=== PATIENT | male | born 1935 | race Caucasian/White ===

== ENCOUNTER 2016-10-28 00:59 | Inpatient (IN) | payer MEDICARE ==
[2016-10-28] VITALS (10 sets, daily range): BP systolic 156–172; BP diastolic 67–96
[~2016-10-28] VITALS: Ht 154.9 cm; Wt 62.6 kg
[~2016-10-28 00:59] MED LIST: ALBU18HF INH; ASPI-621 PO; ATOR40TA78 PO; CARV6.252 PO; CLON0.1T PO; FURO40TA6 PO; HYDR25TA6 PO; INSU100I29 SC; INSU100V10 SC; LISI-170 PO; LOSA50TA6 PO; METF500T9 PO; METO-93 PO
[2016-10-28] MEDS ORDERED: hydrALAzine 20 MG/ML, 1ML ONE (01:59)
[2016-10-28] MEDS ORDERED: hydrALAzine 20 MG/ML, 1ML IV ONE (02:00)
[2016-10-28 02:25] LABS: ASPARTATE AMINO TRANSFERASE 18 U/L (15-37); BLOOD UREA NITROGEN 17 mg/dL (7-18)
[2016-10-28 02:34] LABS: IS PT STATUS REG ER OR PRE ER? YES
[2016-10-28] MEDS ORDERED: NS + 20MEQ KCL 1,000 ML IV SCH (04:39)
[2016-10-28] MEDS ORDERED: HYDROcodone/APAP 5/325 TABLET PO PRN (05:00)
[2016-10-28] MEDS ORDERED: hydrALAzine 20 MG/ML, 1ML IV PRN ×2 (05:00→17:00)
[2016-10-28] MEDS ORDERED: ACETAMINOPHEN 325 MG TABLET PO PRN (05:00)
[2016-10-28] MEDS ORDERED: ONDANSETRON 2MG/ML, 2ML IVPush PRN (05:00)
[2016-10-28] MEDS ORDERED: POLYETHYLENE GLYCOL 17 GM PACKET PO PRN (05:00)
[2016-10-28] MEDS ORDERED: DOCUSATE 100 MG CAPSULE PO PRN (05:00)
[2016-10-28] MEDS ORDERED: LABETALOL 5MG/ML, 20ML IVPush PRN (05:00)
[2016-10-28] MEDS: ENOXAPARIN 40 MG/0.4 ML SQ SCH (06:08)
[2016-10-28] MEDS: INSULIN ASPART 100 UNITS/ML, PEN SQ-INSULIN SCH ×4 (08:38→21:18)
[2016-10-28] MEDS: FUROSEMIDE 40 MG TABLET PO SCH (08:40)
[2016-10-28] MEDS: SENNA/DOCUSATE TABLET PO SCH (08:40)
[2016-10-28] MEDS: METOPROLOL SUCCINATE 50 MG TAB.ER.24H PO SCH (08:40)
[2016-10-28] MEDS: metFORMIN XR 500 MG TAB.ER.24H PO SCH ×2 (08:41→21:07)
[2016-10-28] MEDS: ASPIRIN 81 MG TABLET EC PO SCH (08:41)
[2016-10-28] MEDS: HYDROCHLOROTHIAZIDE 25 MG TABLET PO SCH (08:41)
[2016-10-28] MEDS ORDERED: LOSARTAN 50MG TABLET PO SCH (09:00)
[2016-10-28] MEDS ORDERED: CARVEDILOL 6.25 MG TABLET PO SCH (09:00)
[2016-10-28] MEDS: ENALAPRILAT 1.25 MG/ML, 2ML IV PRN ×2 (11:43→19:44)
[2016-10-28] MEDS: INSULIN DETEMIR 100 UNITS/ML, PEN SQ-INSULIN SCH (19:32)
[2016-10-28] MEDS ORDERED: LISINOPRIL 20 MG TABLET PO SCH (21:00)
[2016-10-28] MEDS: LISINOPRIL 20 MG TABLET PO SCH (21:07)
[2016-10-28] MEDS: ATORVASTATIN 40 MG TABLET PO SCH (21:07)
[2016-10-29] VITALS (9 sets, daily range): BP systolic 121–183; BP diastolic 73–103
[2016-10-29] MEDS: ENALAPRILAT 1.25 MG/ML, 2ML IV PRN (02:23)
[2016-10-29] MEDS: ENOXAPARIN 40 MG/0.4 ML SQ SCH (05:01)
[2016-10-29 05:04] LABS: BLOOD UREA NITROGEN 14 mg/dL (7-18)
[2016-10-29 05:14] LABS: ASPARTATE AMINO TRANSFERASE 14 U/L (15-37)
[2016-10-29] MEDS: metFORMIN XR 500 MG TAB.ER.24H PO SCH ×2 (07:51→20:22)
[2016-10-29] MEDS: METOPROLOL SUCCINATE 50 MG TAB.ER.24H PO SCH (07:51)
[2016-10-29] MEDS: LISINOPRIL 20 MG TABLET PO SCH ×2 (07:51→20:22)
[2016-10-29] MEDS: SENNA/DOCUSATE TABLET PO SCH (07:52)
[2016-10-29] MEDS: ASPIRIN 81 MG TABLET EC PO SCH (07:52)
[2016-10-29] MEDS: HYDROCHLOROTHIAZIDE 25 MG TABLET PO SCH (07:52)
[2016-10-29] MEDS: INSULIN ASPART 100 UNITS/ML, PEN SQ-INSULIN SCH ×4 (07:53→20:21)
[2016-10-29] MEDS: FUROSEMIDE 40 MG TABLET PO SCH (07:56)
[2016-10-29] MEDS ORDERED: POTASSIUM CHLORIDE 20 MEQ TAB.ER.PRT PO ONE (11:30)
[2016-10-29] MEDS: INSULIN DETEMIR 100 UNITS/ML, PEN SQ-INSULIN SCH ×2 (11:44→20:21)
[2016-10-29] MEDS: ATORVASTATIN 40 MG TABLET PO SCH (20:22)
[2016-10-30 02:32] VITALS: BP 149/86
[2016-10-30] MEDS: ENOXAPARIN 40 MG/0.4 ML SQ SCH (05:13)
[2016-10-30 05:44] LABS: BLOOD UREA NITROGEN 19 mg/dL (7-18)
[2016-10-30 07:04] VITALS: BP 135/97
[2016-10-30] MEDS ORDERED: POTASSIUM CHLORIDE 20 MEQ TAB.ER.PRT ONE (08:33)
[2016-10-30] MEDS: INSULIN ASPART 100 UNITS/ML, PEN SQ-INSULIN SCH ×4 (08:58→21:14)
[2016-10-30] MEDS: INSULIN DETEMIR 100 UNITS/ML, PEN SQ-INSULIN SCH ×2 (08:59→21:14)
[2016-10-30] MEDS: SENNA/DOCUSATE TABLET PO SCH (09:00)
[2016-10-30] MEDS: FUROSEMIDE 40 MG TABLET PO SCH (09:00)
[2016-10-30] MEDS: ASPIRIN 81 MG TABLET EC PO SCH (09:00)
[2016-10-30] MEDS: POTASSIUM CHLORIDE 20 MEQ TAB.ER.PRT PO SCH ×2 (09:03→11:33)
[2016-10-30] MEDS: LISINOPRIL 20 MG TABLET PO SCH ×2 (09:04→21:16)
[2016-10-30] MEDS: metFORMIN XR 500 MG TAB.ER.24H PO SCH ×2 (09:05→21:17)
[2016-10-30] MEDS: METOPROLOL SUCCINATE 50 MG TAB.ER.24H PO SCH (09:08)
[2016-10-30 11:40] VITALS: BP 134/79
[2016-10-30 14:16] VITALS: BP 116/71
[2016-10-30 17:05] VITALS: BP 136/86
[2016-10-30 19:39] VITALS: BP 142/82
[2016-10-30] MEDS: ATORVASTATIN 40 MG TABLET PO SCH (21:16)
[2016-10-31 00:50] VITALS: BP 164/88
[2016-10-31] MEDS: ENOXAPARIN 40 MG/0.4 ML SQ SCH (06:07)
[2016-10-31] MEDS: INSULIN ASPART 100 UNITS/ML, PEN SQ-INSULIN SCH ×2 (07:00→12:07)
[2016-10-31 07:19] VITALS: BP 171/90
[2016-10-31] MEDS: metFORMIN XR 500 MG TAB.ER.24H PO SCH (08:44)
[2016-10-31] MEDS: ASPIRIN 81 MG TABLET EC PO SCH (08:44)
[2016-10-31] MEDS: FUROSEMIDE 40 MG TABLET PO SCH (08:45)
[2016-10-31] MEDS: METOPROLOL SUCCINATE 50 MG TAB.ER.24H PO SCH (08:45)
[2016-10-31] MEDS: LISINOPRIL 20 MG TABLET PO SCH (08:46)
[2016-10-31] MEDS: SENNA/DOCUSATE TABLET PO SCH (08:46)
[2016-10-31] MEDS: INSULIN DETEMIR 100 UNITS/ML, PEN SQ-INSULIN SCH (08:48)
[2016-10-31 10:08] VITALS: BP 99/65
[2016-10-31] MEDS ORDERED: HYDR-3343 PO (11:30)
[2016-10-31] MEDS ORDERED: POLY17PO5 PO (11:30)
[2016-10-31] MEDS ORDERED: LISI-170 PO (11:30)
[2016-10-31] MEDS ORDERED: METO-93 PO (11:30)
[2016-10-31] MEDS ORDERED: RIVA20TA PO (11:37)
[2016-10-31 13:02] VITALS: BP 129/79
[2016-10-31] MEDS ORDERED: INSU100V13 SC (13:57)
== END 2016-10-31 13:49 | disposition home health service (06) | DRG 78 ==
LOC: ED 03:03 → SUATTDRO 04:31 → EDIP 04:55 → 5SO 05:15 → DCLOUNGE 10-31 13:00
PROVIDERS: ADMIT Family Medicine; ATTEND Internal Medicine
DX: I67.4 Hypertensive encephalopathy (principal); I50.32 Chronic diastolic (congestive) heart failure; I16.9 Hypertensive crisis, unspecified; I48.91 Unspecified atrial fibrillation; E11.9 Type 2 diabetes mellitus without complications; E78.5 Hyperlipidemia, unspecified; E87.6 Hypokalemia; F03.90 Unspecified dementia, unspecified severity, without behavioral disturbance, psychotic disturbance, mood disturbance, and anxiety; I35.0 Nonrheumatic aortic (valve) stenosis; I11.0 Hypertensive heart disease with heart failure; Z86.73 Personal history of transient ischemic attack (TIA), and cerebral infarction without residual deficits
CPT/HCPCS: 36415; 70450; 71010; 80048; 80053; 80061; 81003; 82043; 82306; 82962; 83036; 83735; 83880; 84439; 84443; 84484; 85025; 87324; 93005; 96374; J1650; J1815; J3480; 92523-GN; J0360

== ENCOUNTER 2016-12-06 11:42 | Inpatient (IN) | payer MEDICARE ==
[~2016-12-06] VITALS: Ht 175.3 cm; Wt 67.4 kg
[~2016-12-06 11:42] MED LIST changes: +HYDR-3343 PO; -INSU100V10 SC; +INSU100V11 SC; +INSU100V13 SC; +POLY17PO5 PO; +RIVA20TA PO
[2016-12-06] MEDS ORDERED: SODIUM CHLORIDE 0.9% 1,000 ML IV ONE (11:53)
[2016-12-06] MEDS ORDERED: SODIUM CHLORIDE FLUSH 10ML SYR IVF ONE (12:00)
[2016-12-06 12:39] LABS: HEMATOCRIT 48.5 % (39.2-51.8); HEMOGLOBIN 16.1 g/dL (13.7-18.0); WHITE BLOOD COUNT 12.5 x10^3/uL (3.4-10)
[2016-12-06 12:50] LABS: BLOOD UREA NITROGEN 14 mg/dL (7-18)
[2016-12-06] MEDS ORDERED: ACETAMINOPHEN 500 MG TABLET ONE (12:56)
[2016-12-06 12:58] LABS: IS PT STATUS REG ER OR PRE ER? YES
[2016-12-06] MEDS ORDERED: ACETAMINOPHEN 500 MG TABLET PO ONE (13:00)
[2016-12-06] MEDS ORDERED: DOCUSATE 100 MG CAPSULE PO PRN (13:00)
[2016-12-06] MEDS ORDERED: ONDANSETRON 2MG/ML, 2ML IVPush PRN (13:00)
[2016-12-06] MEDS ORDERED: ACETAMINOPHEN 325 MG TABLET PO PRN (13:00)
[2016-12-06] MEDS ORDERED: LABETALOL 5MG/ML, 20ML ONE (14:19)
[2016-12-06] MEDS: LABETALOL 5MG/ML, 20ML IVPush PRN ×3 (14:36→21:26)
[2016-12-06] MEDS: SODIUM CHLORIDE 0.9% 1,000 ML IV SCH (17:18)
[2016-12-06] MEDS ORDERED: ENALAPRILAT 1.25 MG/ML, 2ML ONE (20:08)
[2016-12-06] MEDS: ENALAPRILAT 1.25 MG/ML, 2ML IVPush PRN ×2 (20:14→20:31)
[2016-12-06] MEDS: LISINOPRIL 20 MG TABLET PO SCH (22:00)
[2016-12-06 22:20] VITALS: BP 137/98
[2016-12-07] MEDS: SODIUM CHLORIDE 0.9% 1,000 ML IV SCH ×3 (01:03→16:26)
[2016-12-07] MEDS: LABETALOL 5MG/ML, 20ML IVPush PRN ×3 (02:21→06:45)
[2016-12-07] MEDS: ENALAPRILAT 1.25 MG/ML, 2ML IVPush PRN ×3 (03:49→16:26)
[2016-12-07 04:00] VITALS: BP 171/92
[2016-12-07 05:23] LABS: HEMATOCRIT 46.7 % (39.2-51.8); HEMOGLOBIN 15.4 g/dL (13.7-18.0)
[2016-12-07 05:31] LABS: ASPARTATE AMINO TRANSFERASE 31 U/L (15-37); BLOOD UREA NITROGEN 10 mg/dL (7-18)
[2016-12-07] MEDS ORDERED: PANTOPRAZOLE 40 MG IV IVPush SCH (07:30)
[2016-12-07] MEDS ORDERED: METOPROLOL SUCCINATE 100 MG TAB.ER.24H PO SCH (09:00)
[2016-12-07] MEDS: SENNA/DOCUSATE TABLET PO SCH (09:07)
[2016-12-07] MEDS: LISINOPRIL 20 MG TABLET PO SCH ×2 (09:07→22:00)
[2016-12-07] MEDS: ATORVASTATIN 40 MG TABLET PO SCH (09:08)
[2016-12-07] MEDS: POTASSIUM CHLORIDE 10% 40 MEQ/30 ML UDC PO SCH ×2 (10:57→22:20)
[2016-12-07] MEDS ORDERED: hydrALAzine 20 MG/ML, 1ML IV PRN (14:30)
[2016-12-07] MEDS ORDERED: hydrALAzine 20 MG/ML, 1ML ONE (14:31)
[2016-12-07] MEDS ORDERED: DEXTROSE 4 GM TAB.CHEW PO PRN (22:00)
[2016-12-07] MEDS ORDERED: GLUCAGON 1 MG IM PRN (22:00)
[2016-12-07] MEDS ORDERED: DEXTROSE 50%, 50ML SYRINGE IVPush PRN (22:00)
[2016-12-07] MEDS: INSULIN ASPART 100 UNITS/ML, PEN SQ-INSULIN SCH (22:04)
[2016-12-07] MEDS: SODIUM CHLORIDE FLUSH 10ML SYR IVF SCH (22:05)
[2016-12-08] MEDS: INSULIN ASPART 100 UNITS/ML, PEN SQ-INSULIN SCH ×4 (09:43→21:31)
[2016-12-08] MEDS: LISINOPRIL 20 MG TABLET PO SCH ×2 (09:46→21:28)
[2016-12-08] MEDS: ATORVASTATIN 40 MG TABLET PO SCH (09:46)
[2016-12-08] MEDS: PANTOPROZOLE 40MG TABLET PO SCH (09:47)
[2016-12-08] MEDS: SENNA/DOCUSATE TABLET PO SCH (09:48)
[2016-12-08] MEDS: SODIUM CHLORIDE FLUSH 10ML SYR IVF SCH ×2 (09:48→21:28)
[2016-12-08] MEDS ORDERED: hydrALAzine 20 MG/ML, 1ML IV PRN (10:30)
[2016-12-08] MEDS: SODIUM CHLORIDE 0.9% 1,000 ML IV SCH ×2 (13:56→21:28)
[2016-12-09] MEDS: SODIUM CHLORIDE 0.9% 1,000 ML IV SCH (05:33)
[2016-12-09] MEDS: INSULIN ASPART 100 UNITS/ML, PEN SQ-INSULIN SCH ×4 (08:13→20:35)
[2016-12-09] MEDS: SENNA/DOCUSATE TABLET PO SCH (08:56)
[2016-12-09] MEDS: LISINOPRIL 20 MG TABLET PO SCH (08:56)
[2016-12-09] MEDS: PANTOPROZOLE 40MG TABLET PO SCH (08:57)
[2016-12-09] MEDS: METOPROLOL SUCCINATE 100 MG TAB.ER.24H PO SCH (08:57)
[2016-12-09] MEDS: ATORVASTATIN 40 MG TABLET PO SCH (08:57)
[2016-12-09] MEDS: SODIUM CHLORIDE FLUSH 10ML SYR IVF SCH ×2 (08:58→20:34)
[2016-12-09 09:37] LABS: HEMATOCRIT 46.8 % (39.2-51.8); HEMOGLOBIN 15.4 g/dL (13.7-18.0); WHITE BLOOD COUNT 9.1 x10^3/uL (3.4-10)
[2016-12-09 09:50] LABS: BLOOD UREA NITROGEN 10 mg/dL (7-18)
[2016-12-09] MEDS: AMLODIPINE 5 MG TABLET PO SCH (11:04)
[2016-12-10 04:00] VITALS: BP 173/92
[2016-12-10 05:41] LABS: BLOOD UREA NITROGEN 20 mg/dL (7-18)
[2016-12-10 07:16] VITALS: BP 179/91
[2016-12-10] MEDS: PANTOPROZOLE 40MG TABLET PO SCH (08:17)
[2016-12-10] MEDS: LISINOPRIL 20 MG TABLET PO SCH (08:17)
[2016-12-10] MEDS: METOPROLOL SUCCINATE 100 MG TAB.ER.24H PO SCH (08:17)
[2016-12-10] MEDS: INSULIN ASPART 100 UNITS/ML, PEN SQ-INSULIN SCH ×4 (08:17→21:00)
[2016-12-10] MEDS: AMLODIPINE 5 MG TABLET PO SCH ×2 (08:17→21:11)
[2016-12-10] MEDS: SENNA/DOCUSATE TABLET PO SCH (08:18)
[2016-12-10] MEDS: SODIUM CHLORIDE FLUSH 10ML SYR IVF SCH ×2 (08:21→20:18)
[2016-12-10 13:44] VITALS: BP 161/83
[2016-12-10] MEDS: CARVEDILOL 6.25 MG TABLET PO SCH (16:21)
[2016-12-10 20:16] VITALS: BP 160/84
[2016-12-10] MEDS: ATORVASTATIN 40 MG TABLET PO SCH (20:19)
[2016-12-10] MEDS ORDERED: MAGNESIUM SULFATE PMX 2GM/50ML 50 ML IV ONE (20:30)
[2016-12-11] VITALS (7 sets, daily range): BP systolic 137–170; BP diastolic 65–87
[2016-12-11] MEDS: CARVEDILOL 6.25 MG TABLET PO SCH ×2 (05:53→18:20)
[2016-12-11 07:26] LABS: BLOOD UREA NITROGEN 14 mg/dL (7-18)
[2016-12-11 07:29] LABS: HEMATOCRIT 41.6 % (39.2-51.8); HEMOGLOBIN 13.7 g/dL (13.7-18.0); WHITE BLOOD COUNT 5.5 x10^3/uL (3.4-10)
[2016-12-11] MEDS: SENNA/DOCUSATE TABLET PO SCH (08:18)
[2016-12-11] MEDS: PANTOPROZOLE 40MG TABLET PO SCH (08:29)
[2016-12-11] MEDS: AMLODIPINE 5 MG TABLET PO SCH ×2 (08:29→20:44)
[2016-12-11] MEDS: SODIUM CHLORIDE FLUSH 10ML SYR IVF SCH ×2 (08:30→20:43)
[2016-12-11] MEDS: LISINOPRIL 20 MG TABLET PO SCH (08:30)
[2016-12-11] MEDS: INSULIN ASPART 100 UNITS/ML, PEN SQ-INSULIN SCH ×4 (08:41→20:43)
[2016-12-11] MEDS ORDERED: POTASSIUM CHLORIDE 20 MEQ TAB.ER.PRT PO ONE (13:00)
[2016-12-11] MEDS: INSULIN DETEMIR 100 UNITS/ML, PEN SQ-INSULIN SCH (18:21)
[2016-12-11] MEDS: ATORVASTATIN 40 MG TABLET PO SCH (20:44)
[2016-12-12 01:15] VITALS: BP 164/78
[2016-12-12] MEDS: CARVEDILOL 6.25 MG TABLET PO SCH (05:55)
[2016-12-12 07:20] VITALS: BP 156/86
[2016-12-12] MEDS: AMLODIPINE 5 MG TABLET PO SCH (07:59)
[2016-12-12] MEDS: PANTOPROZOLE 40MG TABLET PO SCH (07:59)
[2016-12-12] MEDS: SODIUM CHLORIDE FLUSH 10ML SYR IVF SCH (08:00)
[2016-12-12] MEDS: INSULIN ASPART 100 UNITS/ML, PEN SQ-INSULIN SCH ×2 (08:00→10:58)
[2016-12-12] MEDS: LISINOPRIL 20 MG TABLET PO SCH (08:01)
[2016-12-12] MEDS: INSULIN DETEMIR 100 UNITS/ML, PEN SQ-INSULIN SCH (08:01)
[2016-12-12] MEDS: SENNA/DOCUSATE TABLET PO SCH (08:01)
[2016-12-12] MEDS ORDERED: CARV6.2512 PO (11:46)
[2016-12-12] MEDS ORDERED: LISI-170 PO (11:46)
[2016-12-12] MEDS ORDERED: HYDR-3343 PO (11:46)
[2016-12-12] MEDS ORDERED: INSU100V13 SC (11:46)
[2016-12-12] MEDS ORDERED: AMLO5TAB2 PO (11:46)
== END 2016-12-12 16:02 | DRG 86 ==
LOC: ED 11:52 → EDIP 12:42 → ICU 22:16 → CCU 12-07 15:07 → 5SO 12-09 17:51
PROVIDERS: ADMIT Internal Medicine; ATTEND Internal Medicine
DX: S06.340A Traumatic hemorrhage of right cerebrum without loss of consciousness, initial encounter (principal); I50.32 Chronic diastolic (congestive) heart failure; E11.65 Type 2 diabetes mellitus with hyperglycemia; I11.0 Hypertensive heart disease with heart failure; W18.39XA Other fall on same level, initial encounter; G30.9 Alzheimer's disease, unspecified; F02.80 Dementia in other diseases classified elsewhere, unspecified severity, without behavioral disturbance, psychotic disturbance, mood disturbance, and anxiety; E78.5 Hyperlipidemia, unspecified; Z79.01 Long term (current) use of anticoagulants; I48.91 Unspecified atrial fibrillation; J45.909 Unspecified asthma, uncomplicated; S80.212A Abrasion, left knee, initial encounter; S80.211A Abrasion, right knee, initial encounter; Z79.899 Other long term (current) drug therapy; Z83.3 Family history of diabetes mellitus; Z86.73 Personal history of transient ischemic attack (TIA), and cerebral infarction without residual deficits; Y93.89 Activity, other specified; Y92.098 Other place in other non-institutional residence as the place of occurrence of the external cause; Y99.8 Other external cause status; Z80.9 Family history of malignant neoplasm, unspecified
CPT/HCPCS: 36415; 70450; 71010; 80048; 80053; 80061; 81003; 82040; 82550; 82607; 82962; 83735; 84443; 84484; 85025; 85610; 85730; 87081; 93005; 93306; 96360; 96361; J1815; 92523-GN; C9113; J0360; J3475; J7030; J7050

== ENCOUNTER 2017-03-05 14:18 | Inpatient (IN) | payer MEDICARE ==
[~2017-03-05] VITALS: Ht 167.6 cm; Wt 56.1 kg
[~2017-03-05 14:18] MED LIST changes: +AMLO5TAB2 PO; +ASPI-515 PO; +CARV12.52 PO; +CARV6.2512 PO; +CHOL5000 PO; +CRAN1CAP12 PO; +FURO20TA3 PO; +INSU100I32 SQ-INSULIN; +POTA99TA2 PO; +SERT25TA3 PO
[2017-03-05] MEDS ORDERED: SODIUM CHLORIDE FLUSH 10ML SYR IVF ONE (14:30)
[2017-03-05] MEDS ORDERED: SODIUM CHLORIDE 0.9% 1,000ML IVBOLUS ONE (14:30)
[2017-03-05 15:06] LABS: HEMATOCRIT 45.3 % (39.2-51.8); HEMOGLOBIN 15.2 g/dL (13.7-18.0); WHITE BLOOD COUNT 8.4 x10^3/uL (3.4-10)
[2017-03-05 15:13] LABS: BLOOD UREA NITROGEN 22 mg/dL (7-18)
[2017-03-05 15:20] LABS: IS PT STATUS REG ER OR PRE ER? YES
[2017-03-05] MEDS ORDERED: OMNIPAQUE 350 MG/ML, 100ML BOTTLE ONE (16:00)
[2017-03-05] MEDS ORDERED: NS + 20MEQ KCL 1,000 ML IV SCH (16:47)
[2017-03-05] MEDS ORDERED: POLYETHYLENE GLYCOL 17 GM PACKET PO PRN (17:00)
[2017-03-05] MEDS ORDERED: ACETAMINOPHEN 325 MG TABLET PO PRN (17:00)
[2017-03-05] MEDS ORDERED: HYDROcodone/APAP 5/325 TABLET PO PRN (17:00)
[2017-03-05] MEDS ORDERED: BISACODYL 10 MG SUPP PR PRN (17:00)
[2017-03-05] MEDS ORDERED: morphine SULFATE 10 MG/ML, 1ML IVPush PRN (17:00)
[2017-03-05] MEDS ORDERED: DOCUSATE 100 MG CAPSULE PO PRN (17:00)
[2017-03-05] MEDS ORDERED: ONDANSETRON 2MG/ML, 2ML IVPush PRN (17:00)
[2017-03-05] MEDS: ATORVASTATIN 40 MG TABLET PO SCH (20:29)
[2017-03-05] MEDS: HEPARIN 5,000 UNITS/ML, 1ML SQ SCH (20:29)
[2017-03-05 20:45] VITALS: BP 153/85
[2017-03-05] MEDS: SERTRALINE 50MG TABLET PO SCH (21:15)
[2017-03-05] MEDS: INSULIN ASPART 100 UNITS/ML, PEN SQ-INSULIN SCH (23:27)
[2017-03-06 00:30] VITALS: BP 135/79
[2017-03-06 04:20] VITALS: BP 165/77
[2017-03-06] MEDS: HEPARIN 5,000 UNITS/ML, 1ML SQ SCH ×3 (05:20→21:13)
[2017-03-06 05:56] LABS: BLOOD UREA NITROGEN 24 mg/dL (7-18)
[2017-03-06] MEDS: INSULIN ASPART 100 UNITS/ML, PEN SQ-INSULIN SCH ×4 (07:00→21:14)
[2017-03-06 07:50] VITALS: BP 163/91
[2017-03-06] MEDS: CARVEDILOL 12.5 MG TABLET PO SCH (08:53)
[2017-03-06] MEDS: LISINOPRIL 20 MG TABLET PO SCH (08:53)
[2017-03-06] MEDS ORDERED: ASPIRIN 81 MG TABLET EC PO SCH (09:00)
[2017-03-06] MEDS ORDERED: CHOLECALCIFEROL 1,000 UNIT TABLET PO SCH (09:00)
[2017-03-06] MEDS ORDERED: POTASSIUM GLUCONATE 99 MG HOMEMEDPO SCH (09:00)
[2017-03-06] MEDS ORDERED: POTASSIUM CHLORIDE 20 MEQ TAB.ER.PRT PO ONE (09:00)
[2017-03-06] MEDS: INSULIN DETEMIR 100 UNITS/ML, PEN SQ-INSULIN SCH (09:01)
[2017-03-06 12:18] VITALS: BP 135/77
[2017-03-06] MEDS: CEFTRIAXONE PMX 1GM/50ML 50 ML IV SCH (15:37)
[2017-03-06 20:23] VITALS: BP 186/87
[2017-03-06] MEDS: SERTRALINE 50MG TABLET PO SCH (21:13)
[2017-03-06] MEDS: ATORVASTATIN 40 MG TABLET PO SCH (21:13)
[2017-03-07 01:51] VITALS: BP 195/101
[2017-03-07 03:39] VITALS: BP 173/89
[2017-03-07] MEDS: HEPARIN 5,000 UNITS/ML, 1ML SQ SCH ×3 (05:07→21:28)
[2017-03-07] MEDS: INSULIN ASPART 100 UNITS/ML, PEN SQ-INSULIN SCH ×4 (07:00→21:29)
[2017-03-07 07:24] LABS: BLOOD UREA NITROGEN 17 mg/dL (7-18)
[2017-03-07 08:14] VITALS: BP 150/71
[2017-03-07] MEDS ORDERED: DOCUSATE 50 MG/5 ML ORAL SOL PO PRN (08:30)
[2017-03-07] MEDS ORDERED: MAGNESIUM SULFATE PMX 2GM/50ML 50 ML IV ONE (08:30)
[2017-03-07] MEDS ORDERED: POTASSIUM CHLORIDE 20 MEQ PACKET PO ONE (09:00)
[2017-03-07] MEDS: CARVEDILOL 12.5 MG TABLET PO SCH (11:18)
[2017-03-07] MEDS: ASPIRIN 81 MG TABLET CHEW PO SCH (11:18)
[2017-03-07] MEDS: INSULIN DETEMIR 100 UNITS/ML, PEN SQ-INSULIN SCH (11:19)
[2017-03-07] MEDS: LISINOPRIL 20 MG TABLET PO SCH (11:19)
[2017-03-07] MEDS: CHOLECALCIFEROL 400 UNITS/ML ORAL SOL PO SCH (11:19)
[2017-03-07 14:29] VITALS: BP 143/78
[2017-03-07] MEDS: CEFTRIAXONE PMX 1GM/50ML 50 ML IV SCH (15:15)
[2017-03-07] MEDS ORDERED: POTASSIUM CHLORIDE 20 MEQ TAB.ER.PRT PO SCH (17:00)
[2017-03-07] MEDS: POTASSIUM CHLORIDE 20 MEQ PACKET PO SCH (17:09)
[2017-03-07 20:23] VITALS: BP 170/82
[2017-03-07] MEDS: ATORVASTATIN 40 MG TABLET PO SCH (21:28)
[2017-03-07] MEDS: SERTRALINE 50MG TABLET PO SCH (21:28)
[2017-03-08 03:25] VITALS: BP_SYST 218; BP_SYST 221; BP_DIAS 112; BP_DIAS 114
[2017-03-08] MEDS: LABETALOL 5MG/ML, 20ML IVPush PRN ×2 (03:44→08:49)
[2017-03-08] MEDS: HEPARIN 5,000 UNITS/ML, 1ML SQ SCH ×2 (05:49→12:19)
[2017-03-08 06:11] LABS: BLOOD UREA NITROGEN 16 mg/dL (7-18)
[2017-03-08 06:19] LABS: HEMATOCRIT 40.6 % (39.2-51.8); HEMOGLOBIN 13.6 g/dL (13.7-18.0); WHITE BLOOD COUNT 5.8 x10^3/uL (3.4-10)
[2017-03-08 07:53] VITALS: BP 202/108
[2017-03-08] MEDS: POTASSIUM CHLORIDE 20 MEQ PACKET PO SCH (08:48)
[2017-03-08] MEDS: CARVEDILOL 12.5 MG TABLET PO SCH (08:48)
[2017-03-08] MEDS: ASPIRIN 81 MG TABLET CHEW PO SCH (08:48)
[2017-03-08] MEDS: LISINOPRIL 20 MG TABLET PO SCH (08:48)
[2017-03-08] MEDS: INSULIN DETEMIR 100 UNITS/ML, PEN SQ-INSULIN SCH (08:49)
[2017-03-08] MEDS: INSULIN ASPART 100 UNITS/ML, PEN SQ-INSULIN SCH ×2 (08:49→12:19)
[2017-03-08 09:47] VITALS: BP 167/93
[2017-03-08] MEDS: CHOLECALCIFEROL 400 UNITS/ML ORAL SOL PO SCH (12:19)
[2017-03-08 13:28] VITALS: BP 147/80
[2017-03-08] MEDS ORDERED: ENALAPRILAT 1.25 MG/ML, 2ML IV PRN (13:30)
[2017-03-08] MEDS ORDERED: hydrALAzine 20 MG/ML, 1ML IV PRN (13:30)
[2017-03-08] MEDS ORDERED: POTA20PA25 PO (14:04)
[2017-03-08] MEDS: CEFTRIAXONE PMX 1GM/50ML 50 ML IV SCH (15:00)
== END 2017-03-08 16:33 | DRG 682 ==
LOC: ED 15:15 → EDIP 16:18 → 4EST 18:24
PROVIDERS: ADMIT Hospitalist; ATTEND Family Medicine
DX: N17.0 Acute kidney failure with tubular necrosis (principal); E43 Unspecified severe protein-calorie malnutrition; E44.0 Moderate protein-calorie malnutrition; E11.65 Type 2 diabetes mellitus with hyperglycemia; I48.91 Unspecified atrial fibrillation; G30.9 Alzheimer's disease, unspecified; F02.80 Dementia in other diseases classified elsewhere, unspecified severity, without behavioral disturbance, psychotic disturbance, mood disturbance, and anxiety; I50.32 Chronic diastolic (congestive) heart failure; I69.354 Hemiplegia and hemiparesis following cerebral infarction affecting left non-dominant side; N39.0 Urinary tract infection, site not specified; I11.0 Hypertensive heart disease with heart failure; E86.0 Dehydration; E78.5 Hyperlipidemia, unspecified; E87.6 Hypokalemia; J45.909 Unspecified asthma, uncomplicated; R32 Unspecified urinary incontinence; Z66 Do not resuscitate; Z79.4 Long term (current) use of insulin; Z83.3 Family history of diabetes mellitus; Z99.3 Dependence on wheelchair; Z68.20 Body mass index [BMI] 20.0-20.9, adult
CPT/HCPCS: 36415; 70450; 70551; 71010; 71275; 80048; 81001; 82040; 82607; 82746; 82962; 83036; 83735; 84443; 84484; 85025; 85379; 85610; 85730; 87086; 87324; 93005; 93880; 96360; J0696; J1644; J1815; J3480; Q9967; 92523-GN; J3475; J7030

== ENCOUNTER 2017-04-19 06:27 | Inpatient (IN) | payer MEDICARE ==
[~2017-04-19] VITALS: Ht 162.6 cm; Wt 55.5 kg
[~2017-04-19 06:27] MED LIST changes: +POTA20PA25 PO
[2017-04-19] MEDS ORDERED: SODIUM CHLORIDE 0.9% 1,000 ML IV ONE ×2 (06:41→09:16)
[2017-04-19] MEDS ORDERED: SODIUM CHLORIDE FLUSH 10ML SYR IVF ONE (07:00)
[2017-04-19 07:31] LABS: BASOPHILS # (AUTO) 0.03 x10^3/uL (0-0.1); BASOPHILS % (AUTO) 0 % (0-1); EOSINOPHILS # (AUTO) 0.14 x10^3/uL (0-0.4); EOSINOPHILS % (AUTO) 2 % (1-7); LYMPHOCYTES # (AUTO) 1.65 x10^3/uL (1-3.4); LYMPHOCYTES % (AUTO) 21 % (22-44); MD NO; MEAN CORPUSCULAR HEMOGLOBIN 29.6 pg (27.5-34.5); MEAN CORPUSCULAR HGB CONC 33.7 g/dL (33.2-36.2); MEAN CORPUSCULAR VOLUME 87.9 fL (81-97); MEAN PLATELET VOLUME 7.3 fL (7.4-10.4); MONOCYTES # (AUTO) 0.66 x10^3/uL (0.2-0.8); MONOCYTES % (AUTO) 9 % (2-9); NEUTROPHILS # (AUTO) 5.29 x10^3/uL (1.8-6.8); NEUTROPHILS % (AUTO) 68 % (42-75); PLATELET COUNT 660 x10^3/uL (130-400); RED BLOOD COUNT 5.61 x10^6/uL (4.38-5.82); RED CELL DISTRIBUTION WIDTH 14.5 % (9.4-14.8)
[2017-04-19 07:39] LABS: INTERNATIONAL NORMALIZED RATIO 1.12 (0.93-1.1); PROTHROMBIN TIME 11.5 Seconds (9.6-11.5)
[2017-04-19 07:43] LABS: ALANINE AMINOTRANSFERASE 35 U/L (12-78); ALBUMIN 3.4 g/dL (3.4-5.0); ANION GAP 8 mmol/L (5-15); CALCIUM 9.1 mg/dL (8.5-10.1); CHLORIDE 101 mmol/L (98-107)
[2017-04-19 07:46] LABS: ACETAMINOPHEN < 2 mcg/mL (10-30); ALKALINE PHOSPHATASE 113 U/L (45-117); BILIRUBIN,TOTAL 0.5 mg/dL (0.2-1.0); CREATININE 0.94 mg/dL (0.7-1.3); SALICYLATE LEVEL < 1.7 mg/dL (2.8-20.0); TOTAL PROTEIN 7.9 g/dL (6.4-8.2)
[2017-04-19 08:25] LABS: MICROSCOPIC INDICATED
[2017-04-19 08:30] LABS: CULTURE INDICATED? YES
[2017-04-19] MEDS ORDERED: DEXTROSE 50%, 50ML SYRINGE IVPush ONE (09:00)
[2017-04-19] MEDS ORDERED: SODIUM CHLORIDE FLUSH 10ML SYR IVF PRN (09:30)
[2017-04-19] MEDS ORDERED: CEFTRIAXONE PMX 1GM/50ML 50 ML IVPB ONE (09:30)
[2017-04-19] MEDS ORDERED: DEXTROSE 50%, 50ML SYRINGE ONE (09:59)
[2017-04-19] MEDS ORDERED: CEFTRIAXONE PMX 1GM/50ML 50 ML ONE (09:59)
[2017-04-19] MEDS ORDERED: ACETAMINOPHEN 325 MG TABLET PO PRN (10:30)
[2017-04-19] MEDS ORDERED: CEFTRIAXONE 1,000 MG in DEXTROSE 5% 50 ML IV SCH (10:30)
[2017-04-19] MEDS ORDERED: ONDANSETRON 2MG/ML, 2ML IVPush PRN (10:30)
[2017-04-19 11:17] VITALS: BP 146/97
[2017-04-19] MEDS: D5%-0.9% NACL 1,000 ML IV SCH (12:00)
[2017-04-19] MEDS: ASPIRIN 81 MG TABLET EC PO SCH (12:12)
[2017-04-19 12:46] VITALS: BP 155/104
[2017-04-19 13:35] VITALS: BP 143/90
[2017-04-19 19:19] VITALS: BP 157/97
[2017-04-19] MEDS: SERTRALINE 50MG TABLET PO SCH (20:03)
[2017-04-20] MEDS ORDERED: GLUCAGON 1 MG IM PRN
[2017-04-20] MEDS ORDERED: DEXTROSE 4 GM TAB.CHEW PO PRN
[2017-04-20] MEDS ORDERED: DEXTROSE 50%, 50ML SYRINGE IVPush PRN
[2017-04-20 00:57] VITALS: BP 162/93
[2017-04-20 01:51] LABS: CLOSTRIDIUM DIFFICILE TOXIN NEGATIVE (Negative)
[2017-04-20 01:52] LABS: CLOSTRIDIUM DIFFICILE ANTIGEN POSITIVE
[2017-04-20] MEDS: VANCOMYCIN 50 MG/ML ORAL SUSP PO SCH ×4 (03:46→21:12)
[2017-04-20] MEDS: D5%-0.9% NACL 1,000 ML IV SCH ×2 (04:46→21:13)
[2017-04-20 05:15] LABS: BASOPHILS # (AUTO) 0.11 x10^3/uL (0-0.1); BASOPHILS % (AUTO) 1 % (0-1); EOSINOPHILS # (AUTO) 0.05 x10^3/uL (0-0.4); EOSINOPHILS % (AUTO) 1 % (1-7); LYMPHOCYTES # (AUTO) 1.49 x10^3/uL (1-3.4); LYMPHOCYTES % (AUTO) 17 % (22-44); MD NO; MEAN CORPUSCULAR HEMOGLOBIN 29.9 pg (27.5-34.5); MEAN PLATELET VOLUME 7.6 fL (7.4-10.4); MONOCYTES # (AUTO) 1.04 x10^3/uL (0.2-0.8); MONOCYTES % (AUTO) 12 % (2-9); NEUTROPHILS # (AUTO) 6.28 x10^3/uL (1.8-6.8); NEUTROPHILS % (AUTO) 70 % (42-75); PLATELET COUNT 520 x10^3/uL (130-400); RED BLOOD COUNT 4.67 x10^6/uL (4.38-5.82); RED CELL DISTRIBUTION WIDTH 14.8 % (9.4-14.8)
[2017-04-20 05:16] LABS: CHLORIDE 105 mmol/L (98-107)
[2017-04-20 05:28] LABS: ALANINE AMINOTRANSFERASE 28 U/L (12-78); ALBUMIN 2.8 g/dL (3.4-5.0); ALKALINE PHOSPHATASE 92 U/L (45-117); ANION GAP 9 mmol/L (5-15); BILIRUBIN,TOTAL 0.7 mg/dL (0.2-1.0); CALCIUM 8.8 mg/dL (8.5-10.1); CREATININE 1.16 mg/dL (0.7-1.3); TOTAL PROTEIN 6.3 g/dL (6.4-8.2)
[2017-04-20] MEDS ORDERED: INSULIN ASPART 100 UNITS/ML, PEN SQ-INSULIN SCH ×2 (05:30)
[2017-04-20 06:50] VITALS: BP 177/109
[2017-04-20 07:58] VITALS: BP 184/104
[2017-04-20] MEDS ORDERED: AMLODIPINE 5 MG TABLET PO ONE (08:00)
[2017-04-20] MEDS: CARVEDILOL 12.5 MG TABLET PO SCH (08:26)
[2017-04-20] MEDS: ATORVASTATIN 10 MG TABLET PO SCH (08:26)
[2017-04-20] MEDS: ASPIRIN 81 MG TABLET EC PO SCH (08:26)
[2017-04-20] MEDS: SODIUM CHLORIDE FLUSH 10ML SYR IVF SCH ×3 (08:27→21:12)
[2017-04-20] MEDS: CEFTRIAXONE 1,000 MG in DEXTROSE 5% 50 ML IV SCH (10:29)
[2017-04-20 10:52] VITALS: BP 151/72
[2017-04-20] MEDS: INSULIN ASPART 100 UNITS/ML, PEN SQ-INSULIN SCH ×3 (11:25→21:12)
[2017-04-20 12:19] VITALS: BP 128/72
[2017-04-20 20:53] VITALS: BP 166/95
[2017-04-20] MEDS: SERTRALINE 50MG TABLET PO SCH (21:12)
[2017-04-21 00:28] VITALS: BP 172/96
[2017-04-21 01:45] VITALS: BP 177/95
[2017-04-21] MEDS: hydrALAzine 20 MG/ML, 1ML IV PRN ×2 (01:58→21:05)
[2017-04-21 02:25] VITALS: BP 156/92
[2017-04-21] MEDS: VANCOMYCIN 50 MG/ML ORAL SUSP PO SCH ×4 (03:41→21:05)
[2017-04-21 06:43] VITALS: BP 177/94
[2017-04-21] MEDS: INSULIN ASPART 100 UNITS/ML, PEN SQ-INSULIN SCH ×4 (08:17→21:04)
[2017-04-21] MEDS: ATORVASTATIN 10 MG TABLET PO SCH (08:18)
[2017-04-21] MEDS: SODIUM CHLORIDE FLUSH 10ML SYR IVF SCH ×2 (08:18→20:53)
[2017-04-21] MEDS: CARVEDILOL 12.5 MG TABLET PO SCH (08:18)
[2017-04-21] MEDS: ASPIRIN 81 MG TABLET EC PO SCH (08:18)
[2017-04-21] MEDS: CEFTRIAXONE 1,000 MG in DEXTROSE 5% 50 ML IV SCH (11:12)
[2017-04-21] MEDS: D5%-0.9% NACL 1,000 ML IV SCH (11:25)
[2017-04-21 12:24] VITALS: BP 176/61
[2017-04-21] MEDS ORDERED: NITR100C6 PO (13:24)
[2017-04-21] MEDS ORDERED: FLU VACC QS2017-18 (36MOS+) UP/PF 0.5 ML IM-VACC ONE (14:30)
[2017-04-21 20:26] VITALS: BP 170/89
[2017-04-21] MEDS: SERTRALINE 50MG TABLET PO SCH (21:03)
[2017-04-22 00:20] VITALS: BP 183/99
[2017-04-22 01:40] VITALS: BP 183/101
[2017-04-22] MEDS: hydrALAzine 20 MG/ML, 1ML IV PRN ×2 (01:49→21:25)
[2017-04-22] MEDS: D5%-0.9% NACL 1,000 ML IV SCH (02:06)
[2017-04-22 02:15] VITALS: BP 135/75
[2017-04-22] MEDS: VANCOMYCIN 50 MG/ML ORAL SUSP PO SCH ×4 (03:04→21:34)
[2017-04-22 08:00] VITALS: BP 150/70
[2017-04-22] MEDS: INSULIN ASPART 100 UNITS/ML, PEN SQ-INSULIN SCH ×4 (09:12→21:26)
[2017-04-22] MEDS: ASPIRIN 81 MG TABLET EC PO SCH (09:13)
[2017-04-22] MEDS: CARVEDILOL 12.5 MG TABLET PO SCH (09:13)
[2017-04-22] MEDS: ATORVASTATIN 10 MG TABLET PO SCH (09:13)
[2017-04-22] MEDS: SODIUM CHLORIDE FLUSH 10ML SYR IVF SCH ×2 (09:14→21:24)
[2017-04-22] MEDS: CEFTRIAXONE 1,000 MG in DEXTROSE 5% 50 ML IV SCH (10:50)
[2017-04-22 15:07] VITALS: BP 153/90
[2017-04-22 19:35] VITALS: BP 171/81
[2017-04-22] MEDS: SERTRALINE 50MG TABLET PO SCH (21:25)
[2017-04-23 02:58] VITALS: BP 180/107
[2017-04-23 04:10] VITALS: BP 185/109
[2017-04-23] MEDS: VANCOMYCIN 50 MG/ML ORAL SUSP PO SCH ×2 (04:13→08:40)
[2017-04-23 05:57] VITALS: BP 160/96
[2017-04-23] MEDS: hydrALAzine 20 MG/ML, 1ML IV PRN (06:02)
[2017-04-23 08:00] VITALS: BP 151/77
[2017-04-23] MEDS: INSULIN ASPART 100 UNITS/ML, PEN SQ-INSULIN SCH ×3 (08:39→16:40)
[2017-04-23] MEDS: ASPIRIN 81 MG TABLET EC PO SCH (08:40)
[2017-04-23] MEDS: SODIUM CHLORIDE FLUSH 10ML SYR IVF SCH (08:40)
[2017-04-23] MEDS: CARVEDILOL 12.5 MG TABLET PO SCH (08:40)
[2017-04-23] MEDS: ATORVASTATIN 10 MG TABLET PO SCH (08:40)
[2017-04-23] MEDS: CEFTRIAXONE 1,000 MG in DEXTROSE 5% 50 ML IV SCH (11:00)
[2017-04-23 15:32] VITALS: BP 144/80
== END 2017-04-23 17:55 | disposition home health service (06) | DRG 637 ==
LOC: ED 08:12 → EDIP 09:16 → SUATTDRO 09:18 → 4WST 10:56
PROVIDERS: ADMIT Family Medicine; ATTEND Internal Medicine
PROC: 0T9B70Z Drainage of Bladder with Drainage Device, Via Natural or Artificial Opening (ICD-10-PCS; principal; 2017-04-19)
DX: E11.649 Type 2 diabetes mellitus with hypoglycemia without coma (principal); G93.41 Metabolic encephalopathy; T68.XXXA Hypothermia, initial encounter; D68.69 Other thrombophilia; I48.2 Chronic atrial fibrillation; I50.32 Chronic diastolic (congestive) heart failure; I11.0 Hypertensive heart disease with heart failure; E86.0 Dehydration; I69.354 Hemiplegia and hemiparesis following cerebral infarction affecting left non-dominant side; E78.5 Hyperlipidemia, unspecified; N30.00 Acute cystitis without hematuria; N39.0 Urinary tract infection, site not specified; J98.11 Atelectasis; B96.89 Other specified bacterial agents as the cause of diseases classified elsewhere; G30.9 Alzheimer's disease, unspecified; F02.80 Dementia in other diseases classified elsewhere, unspecified severity, without behavioral disturbance, psychotic disturbance, mood disturbance, and anxiety; J45.909 Unspecified asthma, uncomplicated; R09.02 Hypoxemia; Z79.4 Long term (current) use of insulin; Z83.3 Family history of diabetes mellitus
CPT/HCPCS: 36415; 70450; 71010; 80053; 80307; 80329; 81001; 82140; 82962; 83605; 83735; 84100; 85025; 85610; 85730; 87040; 87077; 87086; 87186; 87324; 87493; 90686; 93005; 96361; 96374; J0696; J1815; J3370; J7042; 92523-GN; G0480; J0360; J7030

== ENCOUNTER 2017-04-25 18:55 | Inpatient (IN) | payer MEDICARE ==
[~2017-04-25] VITALS: Ht 182.9 cm; Wt 54.6 kg
[~2017-04-25 18:55] MED LIST changes: +NITR100C6 PO
[2017-04-25] MEDS ORDERED: CEFTRIAXONE PMX 1GM/50ML 50 ML IVPB ONE (20:00)
[2017-04-25] MEDS ORDERED: PLEASE ENTER HEIGHT AND WEIGHT MC SCH (20:00)
[2017-04-25] MEDS ORDERED: SODIUM CHLORIDE 0.9% 1,000ML IVBOLUS ONE (20:00)
[2017-04-25] MEDS ORDERED: SODIUM CHLORIDE FLUSH 10ML SYR IVF ONE (20:00)
[2017-04-25 20:18] LABS: BASOPHILS # (AUTO) 0.04 x10^3/uL (0-0.1); BASOPHILS % (AUTO) 1 % (0-1); EOSINOPHILS # (AUTO) 0.02 x10^3/uL (0-0.4); EOSINOPHILS % (AUTO) 0 % (1-7); LYMPHOCYTES # (AUTO) 1.09 x10^3/uL (1-3.4); LYMPHOCYTES % (AUTO) 17 % (22-44); MD NO; MEAN CORPUSCULAR HEMOGLOBIN 29.5 pg (27.5-34.5); MEAN CORPUSCULAR HGB CONC 33.3 g/dL (33.2-36.2); MEAN CORPUSCULAR VOLUME 88.7 fL (81-97); MEAN PLATELET VOLUME 7.2 fL (7.4-10.4); MONOCYTES % (AUTO) 15 % (2-9); NEUTROPHILS # (AUTO) 4.33 x10^3/uL (1.8-6.8); NEUTROPHILS % (AUTO) 67 % (42-75); PLATELET COUNT 375 x10^3/uL (130-400); RED CELL DISTRIBUTION WIDTH 14.9 % (9.4-14.8)
[2017-04-25 20:25] LABS: ALANINE AMINOTRANSFERASE 23 U/L (12-78); ALBUMIN 2.6 g/dL (3.4-5.0); ANION GAP 10 mmol/L (5-15); CALCIUM 7.9 mg/dL (8.5-10.1); CHLORIDE 105 mmol/L (98-107); CREATININE 1.31 mg/dL (0.7-1.3)
[2017-04-25 20:27] LABS: ALKALINE PHOSPHATASE 80 U/L (45-117); BILIRUBIN,TOTAL 0.4 mg/dL (0.2-1.0); TOTAL PROTEIN 5.6 g/dL (6.4-8.2)
[2017-04-25 20:34] LABS: MICROSCOPIC INDICATED
[2017-04-25 20:35] LABS: CULTURE INDICATED? YES
[2017-04-25] MEDS ORDERED: ONDANSETRON 2MG/ML, 2ML IVPush PRN (21:00)
[2017-04-25 21:28] VITALS: BP 160/88
[2017-04-25] MEDS: FLUCONAZOLE 200 MG/100 ML 100 ML IV SCH (22:09)
[2017-04-26 01:22] VITALS: BP 169/85
[2017-04-26 05:25] LABS: BASOPHILS # (AUTO) 0.03 x10^3/uL (0-0.1); BASOPHILS % (AUTO) 1 % (0-1); EOSINOPHILS % (AUTO) 0 % (1-7); LYMPHOCYTES # (AUTO) 1.21 x10^3/uL (1-3.4); LYMPHOCYTES % (AUTO) 21 % (22-44); MD NO; MEAN CORPUSCULAR HEMOGLOBIN 29.5 pg (27.5-34.5); MEAN CORPUSCULAR HGB CONC 33.5 g/dL (33.2-36.2); MEAN CORPUSCULAR VOLUME 88.2 fL (81-97); MEAN PLATELET VOLUME 7.3 fL (7.4-10.4); MONOCYTES % (AUTO) 18 % (2-9); NEUTROPHILS # (AUTO) 3.44 x10^3/uL (1.8-6.8); NEUTROPHILS % (AUTO) 61 % (42-75); PLATELET COUNT 306 x10^3/uL (130-400); RED BLOOD COUNT 4.36 x10^6/uL (4.38-5.82); RED CELL DISTRIBUTION WIDTH 14.8 % (9.4-14.8)
[2017-04-26 05:42] LABS: ANION GAP 10 mmol/L (5-15); CALCIUM 7.8 mg/dL (8.5-10.1); CHLORIDE 109 mmol/L (98-107); CREATININE 0.89 mg/dL (0.7-1.3)
[2017-04-26 06:50] VITALS: BP_SYST 162; BP_SYST 184; BP_DIAS 74; BP_DIAS 88
[2017-04-26] MEDS ORDERED: DEXTROSE 50%, 50ML SYRINGE IVPush PRN (07:30)
[2017-04-26] MEDS ORDERED: POTASSIUM CHLORIDE 40 MEQ in SODIUM CHLORIDE 0.9% 500 ML IV ONE (07:30)
[2017-04-26] MEDS ORDERED: DEXTROSE 4 GM TAB.CHEW PO PRN (07:30)
[2017-04-26] MEDS ORDERED: GLUCAGON 1 MG IM PRN (07:30)
[2017-04-26] MEDS: ASPIRIN 81 MG TABLET EC PO SCH (08:36)
[2017-04-26] MEDS: ATORVASTATIN 40 MG TABLET PO SCH (08:36)
[2017-04-26] MEDS: SODIUM CHLORIDE FLUSH 10ML SYR IVF SCH ×2 (08:38→21:30)
[2017-04-26] MEDS: INSULIN DETEMIR 100 UNITS/ML, PEN SQ-INSULIN SCH (09:38)
[2017-04-26] MEDS: INSULIN ASPART 100 UNITS/ML, PEN SQ-INSULIN SCH ×3 (12:54→21:34)
[2017-04-26 13:20] VITALS: BP 163/85
[2017-04-26 14:57] LABS: ANION GAP 8 mmol/L (5-15); CALCIUM 8.1 mg/dL (8.5-10.1); CHLORIDE 110 mmol/L (98-107); CREATININE 0.98 mg/dL (0.7-1.3)
[2017-04-26] MEDS: POTASSIUM CHLORIDE 20 MEQ PACKET PO SCH (17:29)
[2017-04-26 19:51] VITALS: BP 180/91
[2017-04-26] MEDS: CEFTRIAXONE PMX 2GM/50ML 50 ML IV SCH (20:06)
[2017-04-26] MEDS: FLUCONAZOLE 200 MG/100 ML 100 ML IV SCH (21:25)
[2017-04-26] MEDS: SERTRALINE 50MG TABLET PO SCH (21:26)
[2017-04-26] MEDS: ENALAPRILAT 1.25 MG/ML, 2ML IV PRN (21:26)
[2017-04-27] VITALS (8 sets, daily range): BP systolic 119–198; BP diastolic 74–105
[2017-04-27 05:01] LABS: BASOPHILS # (AUTO) 0.05 x10^3/uL (0-0.1); BASOPHILS % (AUTO) 1 % (0-1); EOSINOPHILS # (AUTO) 0.09 x10^3/uL (0-0.4); EOSINOPHILS % (AUTO) 2 % (1-7); LYMPHOCYTES # (AUTO) 1.44 x10^3/uL (1-3.4); LYMPHOCYTES % (AUTO) 27 % (22-44); MD NO; MEAN CORPUSCULAR HEMOGLOBIN 29.4 pg (27.5-34.5); MEAN CORPUSCULAR HGB CONC 33.9 g/dL (33.2-36.2); MEAN CORPUSCULAR VOLUME 86.9 fL (81-97); MEAN PLATELET VOLUME 7.2 fL (7.4-10.4); MONOCYTES # (AUTO) 0.63 x10^3/uL (0.2-0.8); MONOCYTES % (AUTO) 12 % (2-9); NEUTROPHILS # (AUTO) 3.09 x10^3/uL (1.8-6.8); NEUTROPHILS % (AUTO) 58 % (42-75); PLATELET COUNT 343 x10^3/uL (130-400); RED CELL DISTRIBUTION WIDTH 14.8 % (9.4-14.8)
[2017-04-27 05:06] LABS: ANION GAP 9 mmol/L (5-15); CALCIUM 7.9 mg/dL (8.5-10.1); CHLORIDE 107 mmol/L (98-107); CREATININE 0.68 mg/dL (0.7-1.3)
[2017-04-27] MEDS: INSULIN ASPART 100 UNITS/ML, PEN SQ-INSULIN SCH ×4 (07:00→20:40)
[2017-04-27] MEDS: ASPIRIN 81 MG TABLET EC PO SCH (07:58)
[2017-04-27] MEDS: CARVEDILOL 12.5 MG TABLET PO SCH (07:58)
[2017-04-27] MEDS: CHOLECALCIFEROL 1,000 UNIT TABLET PO SCH (07:59)
[2017-04-27] MEDS: LISINOPRIL 20 MG TABLET PO SCH (07:59)
[2017-04-27] MEDS ORDERED: POTASSIUM CHLORIDE 40 MEQ in SODIUM CHLORIDE 0.9% 500 ML IV ONE (08:00)
[2017-04-27] MEDS: INSULIN DETEMIR 100 UNITS/ML, PEN SQ-INSULIN SCH (08:00)
[2017-04-27] MEDS: ENALAPRILAT 1.25 MG/ML, 2ML IV PRN ×2 (09:04→20:32)
[2017-04-27] MEDS: SODIUM CHLORIDE FLUSH 10ML SYR IVF SCH ×2 (09:04→20:02)
[2017-04-27] MEDS: POTASSIUM CHLORIDE 20 MEQ PACKET PO SCH (16:58)
[2017-04-27] MEDS ORDERED: MAGNESIUM SULFATE PMX 2GM/50ML 50 ML IV ONE (19:00)
[2017-04-27] MEDS: ATORVASTATIN 40 MG TABLET PO SCH (20:01)
[2017-04-27] MEDS: CEFTRIAXONE PMX 2GM/50ML 50 ML IV SCH (20:01)
[2017-04-27] MEDS: SERTRALINE 50MG TABLET PO SCH (20:01)
[2017-04-27] MEDS: FLUCONAZOLE 200 MG/100 ML 100 ML IV SCH (20:40)
[2017-04-27] MEDS: hydrALAzine 20 MG/ML, 1ML IV PRN (22:47)
[2017-04-27] MEDS ORDERED: hydrALAzine 20 MG/ML, 1ML IV PRN (23:00)
[2017-04-28 02:08] VITALS: BP 155/83
[2017-04-28 05:27] LABS: BASOPHILS # (AUTO) 0.04 x10^3/uL (0-0.1); BASOPHILS % (AUTO) 1 % (0-1); EOSINOPHILS % (AUTO) 2 % (1-7); LYMPHOCYTES # (AUTO) 1.04 x10^3/uL (1-3.4); LYMPHOCYTES % (AUTO) 20 % (22-44); MD NO; MEAN CORPUSCULAR HEMOGLOBIN 29.6 pg (27.5-34.5); MEAN CORPUSCULAR HGB CONC 33.8 g/dL (33.2-36.2); MEAN CORPUSCULAR VOLUME 87.4 fL (81-97); MEAN PLATELET VOLUME 7.2 fL (7.4-10.4); MONOCYTES # (AUTO) 0.49 x10^3/uL (0.2-0.8); MONOCYTES % (AUTO) 10 % (2-9); NEUTROPHILS # (AUTO) 3.47 x10^3/uL (1.8-6.8); NEUTROPHILS % (AUTO) 68 % (42-75); PLATELET COUNT 360 x10^3/uL (130-400); RED BLOOD COUNT 4.63 x10^6/uL (4.38-5.82); RED CELL DISTRIBUTION WIDTH 14.7 % (9.4-14.8)
[2017-04-28 05:34] LABS: ANION GAP 9 mmol/L (5-15); CALCIUM 8.3 mg/dL (8.5-10.1); CHLORIDE 103 mmol/L (98-107); CREATININE 0.62 mg/dL (0.7-1.3)
[2017-04-28] MEDS: INSULIN ASPART 100 UNITS/ML, PEN SQ-INSULIN SCH ×4 (07:58→20:33)
[2017-04-28 08:04] VITALS: BP 164/104
[2017-04-28] MEDS: ATORVASTATIN 40 MG TABLET PO SCH (09:00)
[2017-04-28] MEDS: INSULIN DETEMIR 100 UNITS/ML, PEN SQ-INSULIN SCH (10:06)
[2017-04-28] MEDS: POTASSIUM CHLORIDE 20 MEQ PACKET PO SCH (10:07)
[2017-04-28] MEDS: ASPIRIN 81 MG TABLET EC PO SCH (10:07)
[2017-04-28] MEDS: CARVEDILOL 12.5 MG TABLET PO SCH (10:07)
[2017-04-28] MEDS: FUROSEMIDE 20 MG TABLET PO SCH (10:08)
[2017-04-28] MEDS: LISINOPRIL 20 MG TABLET PO SCH (10:08)
[2017-04-28] MEDS: CHOLECALCIFEROL 1,000 UNIT TABLET PO SCH (10:09)
[2017-04-28] MEDS: SODIUM CHLORIDE FLUSH 10ML SYR IVF SCH ×2 (10:20→20:21)
[2017-04-28 13:29] VITALS: BP 108/68
[2017-04-28 19:16] VITALS: BP 151/78
[2017-04-28] MEDS: CEFTRIAXONE PMX 2GM/50ML 50 ML IV SCH (20:21)
[2017-04-28] MEDS: SERTRALINE 50MG TABLET PO SCH (20:21)
[2017-04-28] MEDS: ATORVASTATIN 20 MG TABLET PO SCH (20:21)
[2017-04-28] MEDS: FLUCONAZOLE 200 MG/100 ML 100 ML IV SCH (21:19)
[2017-04-29 00:26] VITALS: BP 140/84
[2017-04-29 06:50] VITALS: BP 194/104
[2017-04-29] MEDS: INSULIN ASPART 100 UNITS/ML, PEN SQ-INSULIN SCH ×4 (07:00→21:10)
[2017-04-29] MEDS: SODIUM CHLORIDE FLUSH 10ML SYR IVF SCH ×2 (08:00→20:57)
[2017-04-29] MEDS: INSULIN DETEMIR 100 UNITS/ML, PEN SQ-INSULIN SCH (08:00)
[2017-04-29] MEDS: CHOLECALCIFEROL 1,000 UNIT TABLET PO SCH (08:01)
[2017-04-29] MEDS: ASPIRIN 81 MG TABLET EC PO SCH (08:01)
[2017-04-29] MEDS: FUROSEMIDE 20 MG TABLET PO SCH (08:01)
[2017-04-29] MEDS: CARVEDILOL 12.5 MG TABLET PO SCH ×2 (08:01→21:06)
[2017-04-29] MEDS: POTASSIUM CHLORIDE 20 MEQ PACKET PO SCH (08:04)
[2017-04-29] MEDS: LISINOPRIL 20 MG TABLET PO SCH (08:05)
[2017-04-29] MEDS: AMLODIPINE 5 MG TABLET PO SCH (08:05)
[2017-04-29 10:58] VITALS: BP 130/80
[2017-04-29 13:25] VITALS: BP 110/72
[2017-04-29] MEDS ORDERED: AMLO5TAB2 PO (19:34)
[2017-04-29] MEDS ORDERED: FLUC200T4 PO (19:34)
[2017-04-29] MEDS ORDERED: INSU100I18 SQ-INSULIN (19:34)
[2017-04-29] MEDS ORDERED: ATOR20TA9 PO (19:34)
[2017-04-29] MEDS ORDERED: INSU100I28 SQ-INSULIN (19:34)
[2017-04-29] MEDS ORDERED: CARV12.543 PO (19:34)
[2017-04-29 19:48] VITALS: BP 166/91
[2017-04-29] MEDS: FLUCONAZOLE 200 MG/100 ML 100 ML IV SCH (20:56)
[2017-04-29] MEDS: ATORVASTATIN 20 MG TABLET PO SCH (21:06)
[2017-04-29] MEDS: SERTRALINE 50MG TABLET PO SCH (21:06)
[2017-04-30 01:24] VITALS: BP 165/88
[2017-04-30] MEDS: INSULIN ASPART 100 UNITS/ML, PEN SQ-INSULIN SCH ×4 (07:00→21:38)
[2017-04-30] MEDS: AMLODIPINE 5 MG TABLET PO SCH (08:31)
[2017-04-30] MEDS: LISINOPRIL 20 MG TABLET PO SCH (08:31)
[2017-04-30] MEDS: CARVEDILOL 12.5 MG TABLET PO SCH ×2 (08:32→21:38)
[2017-04-30] MEDS: FUROSEMIDE 20 MG TABLET PO SCH (08:32)
[2017-04-30] MEDS: CHOLECALCIFEROL 1,000 UNIT TABLET PO SCH (08:32)
[2017-04-30] MEDS: POTASSIUM CHLORIDE 20 MEQ PACKET PO SCH (08:33)
[2017-04-30] MEDS: ASPIRIN 81 MG TABLET EC PO SCH (08:33)
[2017-04-30] MEDS: INSULIN DETEMIR 100 UNITS/ML, PEN SQ-INSULIN SCH (08:33)
[2017-04-30] MEDS: SODIUM CHLORIDE FLUSH 10ML SYR IVF SCH ×2 (08:34→21:00)
[2017-04-30 10:14] VITALS: BP 160/85
[2017-04-30 13:50] VITALS: BP 156/85
[2017-04-30] MEDS ORDERED: INSU100V13 SQ (15:39)
[2017-04-30] MEDS ORDERED: FLUC200T4 PO (15:39)
[2017-04-30 19:47] VITALS: BP 159/95
[2017-04-30] MEDS: FLUCONAZOLE 200 MG/100 ML 100 ML IV SCH (21:36)
[2017-04-30] MEDS: SERTRALINE 50MG TABLET PO SCH (21:37)
[2017-04-30] MEDS: ATORVASTATIN 20 MG TABLET PO SCH (21:38)
[2017-05-01 00:27] VITALS: BP 119/75
[2017-05-01 07:35] VITALS: BP 180/92
[2017-05-01] MEDS: POTASSIUM CHLORIDE 20 MEQ PACKET PO SCH (08:35)
[2017-05-01] MEDS: SODIUM CHLORIDE FLUSH 10ML SYR IVF SCH ×2 (08:36→20:04)
[2017-05-01] MEDS: INSULIN DETEMIR 100 UNITS/ML, PEN SQ-INSULIN SCH (08:36)
[2017-05-01] MEDS: INSULIN ASPART 100 UNITS/ML, PEN SQ-INSULIN SCH ×4 (08:37→20:04)
[2017-05-01] MEDS: LISINOPRIL 20 MG TABLET PO SCH (08:37)
[2017-05-01] MEDS: AMLODIPINE 5 MG TABLET PO SCH (08:37)
[2017-05-01] MEDS: CHOLECALCIFEROL 1,000 UNIT TABLET PO SCH (08:38)
[2017-05-01] MEDS: CARVEDILOL 12.5 MG TABLET PO SCH ×2 (08:38→20:04)
[2017-05-01] MEDS: ASPIRIN 81 MG TABLET EC PO SCH (08:38)
[2017-05-01] MEDS: FUROSEMIDE 20 MG TABLET PO SCH (08:40)
[2017-05-01 12:00] VITALS: BP 136/78
[2017-05-01 18:42] VITALS: BP 184/95
[2017-05-01] MEDS: ATORVASTATIN 20 MG TABLET PO SCH (20:04)
[2017-05-01] MEDS: FLUCONAZOLE 200 MG TABLET PO SCH (20:04)
[2017-05-01] MEDS: SERTRALINE 50MG TABLET PO SCH (20:04)
[2017-05-02 02:15] VITALS: BP 163/88
[2017-05-02] MEDS: INSULIN ASPART 100 UNITS/ML, PEN SQ-INSULIN SCH ×4 (07:00→21:00)
[2017-05-02 07:08] VITALS: BP 161/85
[2017-05-02] MEDS: SODIUM CHLORIDE FLUSH 10ML SYR IVF SCH ×2 (09:00→20:22)
[2017-05-02] MEDS: CHOLECALCIFEROL 1,000 UNIT TABLET PO SCH (09:37)
[2017-05-02] MEDS: LISINOPRIL 20 MG TABLET PO SCH (09:37)
[2017-05-02] MEDS: AMLODIPINE 5 MG TABLET PO SCH (09:37)
[2017-05-02] MEDS: ASPIRIN 81 MG TABLET EC PO SCH (09:38)
[2017-05-02] MEDS: CARVEDILOL 12.5 MG TABLET PO SCH ×2 (09:38→21:00)
[2017-05-02] MEDS: FUROSEMIDE 20 MG TABLET PO SCH (09:38)
[2017-05-02] MEDS: POTASSIUM CHLORIDE 20 MEQ PACKET PO SCH (09:38)
[2017-05-02] MEDS: INSULIN DETEMIR 100 UNITS/ML, PEN SQ-INSULIN SCH (09:41)
[2017-05-02 13:28] VITALS: BP 113/73
[2017-05-02 19:06] VITALS: BP 151/84
[2017-05-02] MEDS: FLUCONAZOLE 200 MG TABLET PO SCH (21:00)
[2017-05-02] MEDS: SERTRALINE 50MG TABLET PO SCH (21:00)
[2017-05-02] MEDS: ATORVASTATIN 20 MG TABLET PO SCH (21:00)
[2017-05-02] MEDS: D5%-0.45% NACL 1,000 ML IV SCH (21:16)
[2017-05-03 01:10] VITALS: BP 175/89
[2017-05-03] MEDS: hydrALAzine 20 MG/ML, 1ML IV PRN (01:20)
[2017-05-03 02:19] VITALS: BP 114/67
[2017-05-03 05:52] LABS: BASOPHILS # (AUTO) 0.06 x10^3/uL (0-0.1); BASOPHILS % (AUTO) 1 % (0-1); EOSINOPHILS # (AUTO) 0.14 x10^3/uL (0-0.4); EOSINOPHILS % (AUTO) 2 % (1-7); LYMPHOCYTES # (AUTO) 1.82 x10^3/uL (1-3.4); LYMPHOCYTES % (AUTO) 25 % (22-44); MD NO; MEAN CORPUSCULAR HEMOGLOBIN 29.4 pg (27.5-34.5); MEAN PLATELET VOLUME 7.3 fL (7.4-10.4); MONOCYTES # (AUTO) 0.74 x10^3/uL (0.2-0.8); MONOCYTES % (AUTO) 10 % (2-9); NEUTROPHILS # (AUTO) 4.51 x10^3/uL (1.8-6.8); NEUTROPHILS % (AUTO) 62 % (42-75); PLATELET COUNT 465 x10^3/uL (130-400); RED BLOOD COUNT 5.06 x10^6/uL (4.38-5.82); RED CELL DISTRIBUTION WIDTH 14.6 % (9.4-14.8)
[2017-05-03 06:03] LABS: ANION GAP 9 mmol/L (5-15); CALCIUM 8.8 mg/dL (8.5-10.1); CHLORIDE 102 mmol/L (98-107)
[2017-05-03 06:04] LABS: CREATININE 0.91 mg/dL (0.7-1.3)
[2017-05-03] MEDS: SODIUM CHLORIDE FLUSH 10ML SYR IVF SCH ×2 (08:13→21:47)
[2017-05-03] MEDS: CHOLECALCIFEROL 1,000 UNIT TABLET PO SCH (08:14)
[2017-05-03] MEDS: FUROSEMIDE 20 MG TABLET PO SCH (08:14)
[2017-05-03] MEDS: AMLODIPINE 5 MG TABLET PO SCH (08:14)
[2017-05-03] MEDS: POTASSIUM CHLORIDE 20 MEQ PACKET PO SCH (08:14)
[2017-05-03] MEDS: ASPIRIN 81 MG TABLET EC PO SCH (08:14)
[2017-05-03] MEDS: LISINOPRIL 20 MG TABLET PO SCH (08:14)
[2017-05-03] MEDS: CARVEDILOL 12.5 MG TABLET PO SCH ×2 (08:14→21:47)
[2017-05-03] MEDS: CEFEPIME 2 GM in DEXTROSE 5% 100 ML IV SCH ×2 (08:21→21:01)
[2017-05-03] MEDS: INSULIN DETEMIR 100 UNITS/ML, PEN SQ-INSULIN SCH (08:22)
[2017-05-03] MEDS: INSULIN ASPART 100 UNITS/ML, PEN SQ-INSULIN SCH ×4 (08:22→21:51)
[2017-05-03 08:40] VITALS: BP 145/84
[2017-05-03] MEDS: METRONIDAZOLE PMX 500MG/100ML 100 ML IV SCH ×2 (09:18→16:48)
[2017-05-03] MEDS: D5%-0.45% NACL 1,000 ML IV SCH (12:19)
[2017-05-03 13:50] VITALS: BP 106/70
[2017-05-03 20:00] VITALS: BP 150/85
[2017-05-03] MEDS: SERTRALINE 50MG TABLET PO SCH (21:47)
[2017-05-03] MEDS: ATORVASTATIN 20 MG TABLET PO SCH (21:47)
[2017-05-03] MEDS: FLUCONAZOLE 200 MG TABLET PO SCH (21:47)
[2017-05-04 00:06] VITALS: BP 155/83
[2017-05-04] MEDS: METRONIDAZOLE PMX 500MG/100ML 100 ML IV SCH ×3 (01:11→17:00)
[2017-05-04 06:40] VITALS: BP 167/100
[2017-05-04] MEDS: SODIUM CHLORIDE FLUSH 10ML SYR IVF SCH ×2 (09:00→21:07)
[2017-05-04] MEDS ORDERED: METR500T PO (09:01)
[2017-05-04] MEDS ORDERED: CEFD300C37 PO (09:01)
[2017-05-04] MEDS: POTASSIUM CHLORIDE 20 MEQ PACKET PO SCH (10:16)
[2017-05-04] MEDS: ASPIRIN 81 MG TABLET EC PO SCH (10:16)
[2017-05-04] MEDS: CHOLECALCIFEROL 1,000 UNIT TABLET PO SCH (10:16)
[2017-05-04] MEDS: AMLODIPINE 5 MG TABLET PO SCH (10:17)
[2017-05-04] MEDS: FUROSEMIDE 20 MG TABLET PO SCH (10:17)
[2017-05-04] MEDS: LISINOPRIL 20 MG TABLET PO SCH (10:17)
[2017-05-04] MEDS: INSULIN DETEMIR 100 UNITS/ML, PEN SQ-INSULIN SCH (10:17)
[2017-05-04] MEDS: CARVEDILOL 12.5 MG TABLET PO SCH ×2 (10:17→19:59)
[2017-05-04] MEDS: INSULIN ASPART 100 UNITS/ML, PEN SQ-INSULIN SCH ×4 (10:18→21:00)
[2017-05-04] MEDS: CEFEPIME 2 GM in DEXTROSE 5% 100 ML IV SCH ×2 (10:18→21:07)
[2017-05-04 19:48] VITALS: BP 191/103
[2017-05-04] MEDS: ATORVASTATIN 20 MG TABLET PO SCH (19:59)
[2017-05-04] MEDS: FLUCONAZOLE 200 MG TABLET PO SCH (20:00)
[2017-05-04] MEDS: SERTRALINE 50MG TABLET PO SCH (21:00)
[2017-05-04 22:48] VITALS: BP 148/77
[2017-05-05] MEDS: METRONIDAZOLE PMX 500MG/100ML 100 ML IV SCH ×2 (00:52→10:09)
[2017-05-05 02:05] VITALS: BP 158/93
[2017-05-05] MEDS: INSULIN ASPART 100 UNITS/ML, PEN SQ-INSULIN SCH ×3 (08:05→17:11)
[2017-05-05] MEDS: CEFEPIME 2 GM in DEXTROSE 5% 100 ML IV SCH (09:24)
[2017-05-05] MEDS: SODIUM CHLORIDE FLUSH 10ML SYR IVF SCH (09:25)
[2017-05-05 09:57] VITALS: BP 166/89
[2017-05-05] MEDS: POTASSIUM CHLORIDE 20 MEQ PACKET PO SCH (10:09)
[2017-05-05] MEDS: CARVEDILOL 12.5 MG TABLET PO SCH (10:10)
[2017-05-05] MEDS: ASPIRIN 81 MG TABLET EC PO SCH (10:10)
[2017-05-05] MEDS: CHOLECALCIFEROL 1,000 UNIT TABLET PO SCH (10:10)
[2017-05-05] MEDS: AMLODIPINE 5 MG TABLET PO SCH (10:10)
[2017-05-05] MEDS: LISINOPRIL 20 MG TABLET PO SCH (10:10)
[2017-05-05] MEDS: FUROSEMIDE 20 MG TABLET PO SCH (10:11)
[2017-05-05 15:03] VITALS: BP 120/78
== END 2017-05-05 17:37 | disposition home or self-care (01) | DRG 871 ==
LOC: ED 20:36 → 3NE 20:50
PROVIDERS: ADMIT Internal Medicine; ATTEND Internal Medicine
PROC: 0T9B70Z Drainage of Bladder with Drainage Device, Via Natural or Artificial Opening (ICD-10-PCS; principal; 2017-04-25)
DX: A41.9 Sepsis, unspecified organism (principal); E43 Unspecified severe protein-calorie malnutrition; J69.0 Pneumonitis due to inhalation of food and vomit; B49 Unspecified mycosis; E11.65 Type 2 diabetes mellitus with hyperglycemia; G30.9 Alzheimer's disease, unspecified; I11.0 Hypertensive heart disease with heart failure; I48.91 Unspecified atrial fibrillation; I50.32 Chronic diastolic (congestive) heart failure; R13.12 Dysphagia, oropharyngeal phase; Z68.1 Body mass index [BMI] 19.9 or less, adult; I69.354 Hemiplegia and hemiparesis following cerebral infarction affecting left non-dominant side; J98.11 Atelectasis; B37.49 Other urogenital candidiasis; F02.80 Dementia in other diseases classified elsewhere, unspecified severity, without behavioral disturbance, psychotic disturbance, mood disturbance, and anxiety; R50.9 Fever, unspecified; E83.42 Hypomagnesemia; E87.6 Hypokalemia; J45.909 Unspecified asthma, uncomplicated; R09.02 Hypoxemia; Z79.4 Long term (current) use of insulin; Z79.82 Long term (current) use of aspirin; Z79.899 Other long term (current) drug therapy; Z87.01 Personal history of pneumonia (recurrent); Z87.440 Personal history of urinary (tract) infections; Z83.3 Family history of diabetes mellitus; Z80.8 Family history of malignant neoplasm of other organs or systems
CPT/HCPCS: 36415; 71045; 74230; 80048; 80053; 81001; 82962; 83605; 83735; 85025; 87040; 87086; 87106; 93005; 96374; J0696; J1815; J3480; J0360; J1450; J3475; J7030; J7040

== ENCOUNTER 2017-05-12 18:32 | Inpatient (IN) | payer MEDICARE, MEDICAID ==
[~2017-05-12] VITALS: Ht 157.5 cm; Wt 54.6 kg
[~2017-05-12 18:32] MED LIST changes: +ATOR20TA9 PO; +CARV12.543 PO; +CEFD300C37 PO; +FLUC200T4 PO; +INSU100I18 SQ-INSULIN; +INSU100I28 SQ-INSULIN; +INSU100V13 SQ; +INSULIN GLARGINE 100 UNITS/ML, PEN SQ-INSULIN SCH; +METR500T PO
[2017-05-12] MEDS ORDERED: SODIUM CHLORIDE 0.9% 1,000 ML IV ONE (18:35)
[2017-05-12] MEDS ORDERED: PLEASE ENTER WEIGHT MC SCH (19:00)
[2017-05-12] MEDS ORDERED: SODIUM CHLORIDE FLUSH 10ML SYR IVF ONE (19:00)
[2017-05-12] MEDS ORDERED: CARV12.543 PO (19:02)
[2017-05-12 19:04] LABS: CULTURE INDICATED? YES; MICROSCOPIC INDICATED
[2017-05-12 19:59] LABS: MEAN CORPUSCULAR HEMOGLOBIN 29.4 pg (27.5-34.5); MEAN CORPUSCULAR VOLUME 89.1 fL (81-97); PLATELET COUNT 467 x10^3/uL (130-400); RED BLOOD COUNT 4.64 x10^6/uL (4.38-5.82); RED CELL DISTRIBUTION WIDTH 14.6 % (9.4-14.8)
[2017-05-12 20:03] LABS: INTERNATIONAL NORMALIZED RATIO 1.1 (0.93-1.1); PROTHROMBIN TIME 11.4 Seconds (9.6-11.5)
[2017-05-12 20:05] LABS: ALANINE AMINOTRANSFERASE 39 U/L (12-78); ALBUMIN 2.6 g/dL (3.4-5.0); ANION GAP 7 mmol/L (5-15); CALCIUM 8.6 mg/dL (8.5-10.1); CHLORIDE 107 mmol/L (98-107); CREATININE 1.42 mg/dL (0.7-1.3)
[2017-05-12 20:09] LABS: ALKALINE PHOSPHATASE 90 U/L (45-117); BILIRUBIN,TOTAL 0.5 mg/dL (0.2-1.0); TOTAL PROTEIN 6.3 g/dL (6.4-8.2); TROPONIN I < 0.015 ng/mL (0.000-0.045)
[2017-05-12 20:27] LABS: BASOPHILS # (AUTO) 0.04 x10^3/uL (0-0.1); BASOPHILS % (AUTO) 1 % (0-1); EOSINOPHILS # (AUTO) 0.07 x10^3/uL (0-0.4); EOSINOPHILS % (AUTO) 1 % (1-7); LYMPHOCYTES # (AUTO) 1.43 x10^3/uL (1-3.4); LYMPHOCYTES % (AUTO) 17 % (22-44); MD SCAN; MONOCYTES # (AUTO) 0.92 x10^3/uL (0.2-0.8); MONOCYTES % (AUTO) 11 % (2-9); NEUTROPHILS # (AUTO) 5.88 x10^3/uL (1.8-6.8); NEUTROPHILS % (AUTO) 71 % (42-75)
[2017-05-12] MEDS ORDERED: CEFTRIAXONE PMX 1GM/50ML 50 ML IV ONE (20:30)
[2017-05-12] MEDS ORDERED: CEFTRIAXONE PMX 1GM/50ML 50 ML ONE (20:32)
[2017-05-12 20:59] VITALS: BP 134/86
[2017-05-12] MEDS ORDERED: BISACODYL 10 MG SUPP PR PRN (21:00)
[2017-05-12] MEDS ORDERED: INSULIN LISPRO 100 UNITS/ML, PEN SQ-INSULIN SCH (21:00)
[2017-05-12] MEDS: SERTRALINE 50MG TABLET PO SCH (21:00)
[2017-05-12] MEDS ORDERED: POLYETHYLENE GLYCOL 17 GM PACKET PO PRN (21:00)
[2017-05-12] MEDS ORDERED: CEFTRIAXONE PMX 1GM/50ML 50 ML IV SCH (21:00)
[2017-05-12] MEDS: ATORVASTATIN 20 MG TABLET PO SCH (21:00)
[2017-05-12] MEDS ORDERED: CEFTRIAXONE 1,000 MG in SODIUM CHLORIDE 0.9% 50 ML IV SCH (21:00)
[2017-05-12] MEDS ORDERED: ONDANSETRON 2MG/ML, 2ML IVPush PRN (21:00)
[2017-05-12] MEDS ORDERED: ACETAMINOPHEN 325 MG TABLET PO PRN (21:00)
[2017-05-12 21:24] LABS: HEMOGLOBIN A1C 9.4 % (4.2-6.3)
[2017-05-12] MEDS: FLUCONAZOLE 200 MG/100 ML 100 ML IV SCH (22:08)
[2017-05-12] MEDS: HEPARIN 5,000 UNITS/ML, 1ML SQ SCH (22:09)
[2017-05-12] MEDS: SODIUM CHLORIDE 0.9% 1,000 ML IV SCH (22:09)
[2017-05-12] MEDS: INSULIN LISPRO 100 UNITS/ML, PEN MEDIUM DOSE SS SQ-INSULIN SCH (22:48)
[2017-05-12 23:56] VITALS: BP 134/86
[2017-05-13 01:08] VITALS: BP_SYST 157; BP_SYST 172; BP_DIAS 102; BP_DIAS 116
[2017-05-13] MEDS ORDERED: hydrALAzine 20 MG/ML, 1ML IV PRN (01:30)
[2017-05-13 05:07] LABS: BASOPHILS # (AUTO) 0.03 x10^3/uL (0-0.1); BASOPHILS % (AUTO) 0 % (0-1); EOSINOPHILS # (AUTO) 0.05 x10^3/uL (0-0.4); EOSINOPHILS % (AUTO) 1 % (1-7); LYMPHOCYTES # (AUTO) 2.03 x10^3/uL (1-3.4); LYMPHOCYTES % (AUTO) 20 % (22-44); MD NO; MEAN PLATELET VOLUME 8.9 fL (7.4-10.4); MONOCYTES % (AUTO) 10 % (2-9); NEUTROPHILS # (AUTO) 7.32 x10^3/uL (1.8-6.8); NEUTROPHILS % (AUTO) 70 % (42-75); PLATELET COUNT 419 x10^3/uL (130-400); RED BLOOD COUNT 4.76 x10^6/uL (4.38-5.82); RED CELL DISTRIBUTION WIDTH 15.1 % (9.4-14.8)
[2017-05-13 05:21] LABS: ALANINE AMINOTRANSFERASE 33 U/L (12-78); ALBUMIN 2.5 g/dL (3.4-5.0); ANION GAP 10 mmol/L (5-15); CALCIUM 8.3 mg/dL (8.5-10.1); CHLORIDE 107 mmol/L (98-107)
[2017-05-13 05:25] LABS: ALKALINE PHOSPHATASE 84 U/L (45-117); BILIRUBIN,TOTAL 0.5 mg/dL (0.2-1.0); TOTAL PROTEIN 6.1 g/dL (6.4-8.2); TROPONIN I 0.059 ng/mL (0.000-0.045)
[2017-05-13] MEDS: HEPARIN 5,000 UNITS/ML, 1ML SQ SCH ×3 (05:56→21:10)
[2017-05-13 06:30] VITALS: BP 108/64
[2017-05-13] MEDS: POTASSIUM CHLORIDE 20 MEQ PACKET PO SCH (09:00)
[2017-05-13] MEDS ORDERED: INSULIN GLARGINE 100 UNITS/ML, PEN SQ-INSULIN SCH (09:00)
[2017-05-13] MEDS: INSULIN LISPRO 100 UNITS/ML, PEN MEDIUM DOSE SS SQ-INSULIN SCH ×4 (09:53→19:57)
[2017-05-13] MEDS: CHOLECALCIFEROL 1,000 UNIT TABLET PO SCH (09:54)
[2017-05-13] MEDS: AMLODIPINE 5 MG TABLET PO SCH (09:54)
[2017-05-13] MEDS: ASPIRIN 81 MG TABLET EC PO SCH (09:55)
[2017-05-13] MEDS: SENNA/DOCUSATE TABLET PO SCH (09:55)
[2017-05-13] MEDS: FUROSEMIDE 20 MG TABLET PO SCH (09:55)
[2017-05-13 11:29] LABS: TROPONIN I 0.108 ng/mL (0.000-0.045)
[2017-05-13] MEDS: SODIUM CHLORIDE 0.9% 1,000 ML IV SCH (12:33)
[2017-05-13 13:44] VITALS: BP 110/77
[2017-05-13 19:25] VITALS: BP 127/78
[2017-05-13] MEDS ORDERED: CEFTRIAXONE 1,000 MG in SODIUM CHLORIDE 0.9% 50 ML IV SCH (20:30)
[2017-05-13] MEDS: ATORVASTATIN 20 MG TABLET PO SCH ×2 (21:00→21:10)
[2017-05-13] MEDS: SERTRALINE 50MG TABLET PO SCH (21:10)
[2017-05-13] MEDS: FLUCONAZOLE 200 MG/100 ML 100 ML IV SCH (22:14)
[2017-05-14 01:30] VITALS: BP 161/85
[2017-05-14] MEDS: SODIUM CHLORIDE 0.9% 1,000 ML IV SCH (04:07)
[2017-05-14] MEDS: HEPARIN 5,000 UNITS/ML, 1ML SQ SCH ×3 (05:57→22:45)
[2017-05-14] MEDS ORDERED: D5%-LACTATED RINGERS 1,000 ML IV SCH (06:30)
[2017-05-14] MEDS: INSULIN LISPRO 100 UNITS/ML, PEN MEDIUM DOSE SS SQ-INSULIN SCH ×4 (07:00→21:00)
[2017-05-14 08:08] VITALS: BP 157/80
[2017-05-14] MEDS: AMLODIPINE 5 MG TABLET PO SCH ×2 (09:00→15:37)
[2017-05-14] MEDS: POTASSIUM CHLORIDE 20 MEQ PACKET PO SCH (09:00)
[2017-05-14] MEDS: CHOLECALCIFEROL 1,000 UNIT TABLET PO SCH ×2 (09:00→15:37)
[2017-05-14] MEDS: FUROSEMIDE 20 MG TABLET PO SCH ×2 (09:00→15:37)
[2017-05-14] MEDS: ASPIRIN 81 MG TABLET EC PO SCH ×2 (09:00→15:37)
[2017-05-14] MEDS: SENNA/DOCUSATE TABLET PO SCH ×2 (09:00→15:37)
[2017-05-14 12:50] VITALS: BP 175/105
[2017-05-14] MEDS ORDERED: hydrALAzine 20 MG/ML, 1ML IV PRN (13:30)
[2017-05-14 19:45] VITALS: BP 157/92
[2017-05-14] MEDS: ATORVASTATIN 20 MG TABLET PO SCH (21:00)
[2017-05-14] MEDS: CEFTRIAXONE 1,000 MG in SODIUM CHLORIDE 0.9% 50 ML IV SCH (22:45)
[2017-05-14] MEDS: SERTRALINE 50MG TABLET PO SCH (22:45)
[2017-05-14] MEDS: FLUCONAZOLE 200 MG/100 ML 100 ML IV SCH (23:53)
[2017-05-15 00:25] VITALS: BP 160/94
[2017-05-15] MEDS: HEPARIN 5,000 UNITS/ML, 1ML SQ SCH ×3 (06:21→23:09)
[2017-05-15 07:55] LABS: BASOPHILS # (AUTO) 0.06 x10^3/uL (0-0.1); BASOPHILS % (AUTO) 1 % (0-1); EOSINOPHILS # (AUTO) 0.12 x10^3/uL (0-0.4); EOSINOPHILS % (AUTO) 2 % (1-7); LYMPHOCYTES # (AUTO) 1.45 x10^3/uL (1-3.4); LYMPHOCYTES % (AUTO) 24 % (22-44); MD NO; MEAN CORPUSCULAR HEMOGLOBIN 29.3 pg (27.5-34.5); MEAN CORPUSCULAR HGB CONC 33.1 g/dL (33.2-36.2); MEAN CORPUSCULAR VOLUME 88.6 fL (81-97); MEAN PLATELET VOLUME 7.8 fL (7.4-10.4); MONOCYTES # (AUTO) 0.72 x10^3/uL (0.2-0.8); MONOCYTES % (AUTO) 12 % (2-9); NEUTROPHILS # (AUTO) 3.74 x10^3/uL (1.8-6.8); NEUTROPHILS % (AUTO) 62 % (42-75); PLATELET COUNT 468 x10^3/uL (130-400); RED BLOOD COUNT 4.98 x10^6/uL (4.38-5.82); RED CELL DISTRIBUTION WIDTH 15.2 % (9.4-14.8)
[2017-05-15 07:57] VITALS: BP 157/105
[2017-05-15 08:03] LABS: CALCIUM 8.6 mg/dL (8.5-10.1); CHLORIDE 113 mmol/L (98-107); CREATININE 1.03 mg/dL (0.7-1.3)
[2017-05-15 08:13] LABS: ANION GAP 9 mmol/L (5-15)
[2017-05-15] MEDS: POTASSIUM CHLORIDE 20 MEQ PACKET PO SCH (09:00)
[2017-05-15] MEDS ORDERED: ASPIRIN 81 MG TABLET CHEW ONE (09:51)
[2017-05-15] MEDS: CHOLECALCIFEROL 1,000 UNIT TABLET PO SCH (10:05)
[2017-05-15] MEDS: FUROSEMIDE 20 MG TABLET PO SCH (10:06)
[2017-05-15] MEDS: SENNA/DOCUSATE TABLET PO SCH (10:06)
[2017-05-15] MEDS: AMLODIPINE 5 MG TABLET PO SCH (10:07)
[2017-05-15] MEDS: ASPIRIN 81 MG TABLET CHEW PO SCH (10:07)
[2017-05-15] MEDS: INSULIN LISPRO 100 UNITS/ML, PEN MEDIUM DOSE SS SQ-INSULIN SCH ×4 (10:13→20:09)
[2017-05-15 13:24] VITALS: BP 111/70
[2017-05-15] MEDS ORDERED: [UNRECOGNIZED DRUG - REMARK] MC SCH (17:30)
[2017-05-15] MEDS ORDERED: OMNIPAQUE 350 MG/ML, 100ML BOTTLE ONE (18:15)
[2017-05-15 19:15] VITALS: BP 117/83
[2017-05-15] MEDS: CEFTRIAXONE 1,000 MG in SODIUM CHLORIDE 0.9% 50 ML IV SCH (20:09)
[2017-05-15] MEDS: SERTRALINE 50MG TABLET PO SCH (20:10)
[2017-05-15] MEDS: ATORVASTATIN 20 MG TABLET PO SCH (20:10)
[2017-05-15] MEDS: FLUCONAZOLE 200 MG/100 ML 100 ML IV SCH (21:12)
[2017-05-16 00:48] VITALS: BP 162/90
[2017-05-16] MEDS: HEPARIN 5,000 UNITS/ML, 1ML SQ SCH ×2 (06:00→12:55)
[2017-05-16 06:42] VITALS: BP 170/92
[2017-05-16] MEDS: SENNA/DOCUSATE TABLET PO SCH (09:00)
[2017-05-16] MEDS: POTASSIUM CHLORIDE 20 MEQ PACKET PO SCH (09:00)
[2017-05-16] MEDS ORDERED: CLON0.1T PO (09:22)
[2017-05-16] MEDS ORDERED: FLUC200T4 PO (09:22)
[2017-05-16] MEDS: FUROSEMIDE 20 MG TABLET PO SCH (10:11)
[2017-05-16] MEDS: INSULIN LISPRO 100 UNITS/ML, PEN MEDIUM DOSE SS SQ-INSULIN SCH ×3 (10:11→16:44)
[2017-05-16] MEDS: AMLODIPINE 5 MG TABLET PO SCH (10:11)
[2017-05-16] MEDS: CHOLECALCIFEROL 1,000 UNIT TABLET PO SCH (10:11)
[2017-05-16] MEDS: ASPIRIN 81 MG TABLET CHEW PO SCH (10:11)
[2017-05-16 12:04] VITALS: BP 132/79
== END 2017-05-16 18:23 | DRG 871 ==
LOC: ED 18:44 → EDIP 20:10 → 4EST 20:43
PROVIDERS: ADMIT Internal Medicine; ATTEND Internal Medicine
DX: A41.9 Sepsis, unspecified organism (principal); E43 Unspecified severe protein-calorie malnutrition; I11.0 Hypertensive heart disease with heart failure; I69.354 Hemiplegia and hemiparesis following cerebral infarction affecting left non-dominant side; I31.3 Pericardial effusion (noninflammatory); I48.91 Unspecified atrial fibrillation; I50.32 Chronic diastolic (congestive) heart failure; N30.00 Acute cystitis without hematuria; T83.518A Infection and inflammatory reaction due to other urinary catheter, initial encounter; Z51.5 Encounter for palliative care; E11.9 Type 2 diabetes mellitus without complications; F03.90 Unspecified dementia, unspecified severity, without behavioral disturbance, psychotic disturbance, mood disturbance, and anxiety; Z99.3 Dependence on wheelchair; E78.5 Hyperlipidemia, unspecified; I35.8 Other nonrheumatic aortic valve disorders; J44.9 Chronic obstructive pulmonary disease, unspecified; K59.00 Constipation, unspecified; K80.20 Calculus of gallbladder without cholecystitis without obstruction; N28.1 Cyst of kidney, acquired; Y84.6 Urinary catheterization as the cause of abnormal reaction of the patient, or of later complication, without mention of misadventure at the time of the procedure; Z79.4 Long term (current) use of insulin; Z68.22 Body mass index [BMI] 22.0-22.9, adult
CPT/HCPCS: 36415; 70450; 71045; 74177; 80048; 80053; 80307; 81001; 82140; 82962; 83036; 83735; 84484; 85025; 85610; 85730; 87086; 87106; 93005; 93306; 93880; 96360; 96361; J0696; J1644; Q9967; J0360; J1450; J1815; J7030; J7121